=== PATIENT | female | born 1990 | race Caucasian/White ===

== ENCOUNTER 2019-09-02 11:28 | Emergency (ER) | payer SELFPAY ==
[2019-09-02 11:41] VITALS: BP 150/96; PULSE 88; RESP 17; TEMP 37; O2SAT 97; BMI 42.5
[2019-09-02 11:57] LABS: Basophils % 0.2 %; Eosinophils # 0.2 10^3/uL (0.0-0.8); Eosinophils % 2.6 %; Hematocrit 35.2 % (37.0-47.0); Hemoglobin 10.9 g/dL (11.5-15.3); Lymphocytes # 2.2 10^3/uL (0.8-4.8); Lymphocytes % 25.7 %; Mean Corpuscular Volume 87.3 fL (81-99); Mean Platelet Volume 9.7 fL (7.4-10.4); Monocytes # 0.5 10^3/uL (0.2-0.9); Neutrophils # 5.5 10^3/uL (1.8-7.7); Neutrophils % 65.3 %; Nucleated Red Blood Cells % 0 %; Platelet Count 409 10^3/cmm (130-400); Red Blood Count 4.03 10^6/uL (4.1-5.3); White Blood Count 8.4 10^3/uL (4.0-10.0)
--- NOTE | 2019-09-02 12:08 | US_ITS ---
WS: [id number] TRANSABDOMINAL PELVIC ULTRASOUND HISTORY: heavy bleeding/clots COMPARISON: None available. Uterus: Normal size anteverted uterus. Endometrium: 0.8 cm. Mild endometrial thickening extends towards the endocervical canal. There are re tained products of a spontaneous miscarriage. Neither ovary is well visualized. No pelvic masses are identified. No free fluid. US/US pelvic with transvaginal IMPRESSION: Mildly thickened endometrium consistent with incomplete spontaneous .
--- NOTE | 2019-09-02 12:12 | ED_ITS ---
HPI - Female Genitourinary General: Chief complaint: Vaginal Bleeding Stated complaint: BLEEDING AND CRAMPING, POSS PREG Time Seen by Provider: 09/02/19 11:41 Source: patient Mode of arrival: ambulatory Limitations: no limitations History of Present Illness: HPI Narrative: Patient is a 28-year-old female who presents to ED today with complaints of heavy and prolonged vaginal bleeding (18 days). Patient states she has a history of PCOS and does not have regular menstrual cycles. She initially thought that she may be and miscarrying as her and her significant other are trying to conceive. Patient never took a home test nor was a ever confirmed. Patient states she has not really had any abdominal or pelvic pain/cramping. She states bleeding initially was heavy but progressively lightened up and then became heavy again. Patient denies any vaginal discharge, vaginal odor, new sexual partners, concern for STDs. She does not take any medications for the PCOS. MD elicited complaint: vaginal bleeding Pertinent past history: other (PCOS) Onset (ago): day(s) Vaginal discharge: none Vaginal bleeding: heavy and clots Exacerbating factors: none Relieving factors: none Associated symptoms: Deny abdominal pain, headache(s), nausea, syncope or vaginal discharge Date of Last Menstrual Period: 09/02/19 Review of Systems Const: Denies: fever or chills Card: Denies: chest pain, palpitations, irregular heart rhythm, edema, swelling of feet/ankles, lightheadedness, syncope, pre-syncope, shortness of breath on exertion or shortness of breath when lying down Resp: Denies: shortness of breath or chest congestion GI: Denies: abdominal pain, nausea, vomiting or diarrhea : Reports: vaginal bleeding; Denies: flank pain, difficulty urinating, painful urination, urinary frequency, urinary urgency, urinary hesitancy, genital lesion, genital itching, vaginal discharge, painful menstruation or pelvic pain Musc: Denies: neck pain or back pain Skin/Breast: Denies: rash Neuro: Denies: headache, numbness in extremities, weakness in extremities or changes in sensation PFS ED PFSH: Social History (Updated 08/28/19 @ 10:35 by Ruth Ann Martinez LPN) Smoking and tobacco status: never smoked Female Reproductive History: Date of last menstrual period: 09/02/19 Physical Exam Const: COMMON NORMALS: no apparent distress, oriented x3, no limitations and alert NUTRITIONAL APPEARANCE: obese morbidly obese HENMT: COMMON NORMALS: normocephalic and head/scalp atraumatic HEAD & SCALP: normocephalic and atraumatic Resp: COMMON NORMALS: normal respiratory effort and clear to auscultation bilaterally AUSCULTATION: clear to auscultation bilaterally Cardio: COMMON NORMALS: regular rate and regular rhythm RATE: regular rate RHYTHM: regular rhythm GI: COMMON NORMALS: normal to inspection, nondistended, normoactive bowel sounds, soft to palpation, non-tender, no hepatosplenomegaly and no masses PA LPATION: Yes soft and Yes no hepatosplenomegaly : COMMON NORMALS: Yes no CVA tenderness BLADDER/KIDNEY EXAM: Yes no CVA tenderness Back/Pelvis: COMMON NORMALS: no CVA tenderness Neuro: COMMON NORMALS: oriented x3 SENSORIUM/ORIENTATION: Yes alert Skin: COMMON NORMALS: no rashes or lesions noted GENERAL SKIN EXAM: no rashes or lesions noted Course Vital Signs: Vital signs: Vital Signs Temperature 98.6 F 09/02/19 11:41 Pulse Rate 88 09/02/19 11:41 Respiratory Rate 17 09/02/19 11:41 Blood Pressure 150/96 09/02/19 11:41 Pulse Oximetry 97 09/02/19 11:41 MDM - Female MDM Narrative: Medical decision making narrative: Patient's hCG is consistent with a non female. Spoke to Dr. Larsen regarding the ultrasound findings. She was under the impression from the ultra sound technician that patient was hence her report. She stated now that has been ruled out most likely ultrasound findings are consistent with heavy menstrual bleeding and that these are not retained products of conception. Endometrium was slightly thickened. Spoke to patient regarding her bleeding and her need for follow-up. Ultimately they are trying to conceive thus hormonal therapy probably would not be indicated at this time. We will go ahead and put her on 5 days of TXA to try to stop her bleeding. Case management will try to set her up with the women's health clinic for further evaluation. Lab Data: Labs: Lab Results 09/02/19 09/02/19 09/02/19 Range/Units 11:50 11:50 11:50 WBC 8.4 (4.0-10.0) 10^3/ uL RBC 4.03 L (4.1-5.3) 10^6/u L Hgb 10.9 L (11.5-15.3) g/dL Hct 35.2 L (37.0-47.0) % MCV 87.3 (81-99) fL MCH 27.0 L (28.0-34.0) pg MCHC 31.0 (30.0-36.0) g/dL RDW 15.0 (12.1-15.1) % Plt Count 409 H (130-400) 10^3/c mm MPV 9.7 (7.4-10.4) fL Neut % (Auto) 65.3 % Lymph % (Auto) 25.7 % Anderson % (Auto) 6.0 % Eos % (Auto) 2.6 % Baso % (Auto) 0.2 % Neut # (Auto) 5.5 (1.8-7.7) 10^3/u L Lymph # (Auto) 2.2 (0.8-4.8) 10^3/u L Anderson # (Auto) 0.5 (0.2-0.9) 10^3/u L Eos # (Auto) 0.2 (0.0-0.8) 10^3/u L Baso # (Auto) 0.0 (0.0-0.1) 10^3/u L Nucleated RBC % (a uto) 0 % Nucleated RBCs # 0.0 /100WBC Sodium 139 (136-145) mmol/L Potassium 4.2 (3.5-5.1) mmol/L Chloride 101 (98-107) mmol/L Carbon Dioxide 25 (22-29) mmol/L Anion Gap 17.2 (5-19) BUN 9 (6-20) mg/dL Creatinine 0.7 (0.5-0.9) mg/dL GFR Calculation 101.1 (90-130) mL/min Glucose 93 (65-115) mg/dL Calculated Osmolal ity 284 L (285-295) mOsm/k g Calcium 9.5 (8.5-10.5) mg/dL Total Bilirubin 0.2 (0.15-1.2) mg/dL AST 14 (0-32) U/L ALT 14 (0-33) U/L Alkaline Phosphata se 91 (35-105) IU/L Total Protein 7.2 (6.6-8.7) g/dL Albumin 4.6 (3.5-5.2) g/dL Globulin 2.6 (1.3-4.6) g/dL Ser , Kranthi i-Qnt 0.50 mIU/mL Blood Type AB Positive Rho(D) Type Positive Imaging Data: US pelvis : Radiologist's impression: [facility] [address] [address] Ultrasound Report Signed Patient: Anamaria Lieberman Unit #: [id number] : 1990 Age/Sex: 28 / F ADM Date: 09/02/19 Loc: ER Room/Bed: Attending Dr: Ordering Provider/Ordering MD: Philly Sen Date of Service: 09/02/19 Procedure(s): US pelvic with transvaginal Accession Number(s): [id number] Report Number: [id number] WS: [id number] TRANSABDOMINAL PELVIC ULTRASOUND HISTORY: heavy bleeding/clots COMPARISON: None available. Uterus: Normal size anteverted uterus. Endometrium: 0.8 cm. Mild endometrial thickening extends towards the endocervical canal. There are retained products of a spontaneous miscarriage. Neither ovary is well visualized. No pelvic masses are identified. No free fluid. US/US pelvic with transvaginal IMPRESSION: Mildly thickened endometrium consistent with incomplete spontaneous . Dictated By: Eulalia Larsen DO Signed By: Eulalia Larsen DO Signed Date/Time: 09/02/19 131 DD/ 1311 Discharge Plan Discharge Patient Disposition: Home, Self-Care Clinical Impression: Dysfunctional uterine bleeding Condition: Stable Prescriptions: New Lysteda 650 mg tablet 1,300 mg PO TID 5 Days Qty: 30 RF: 0 No Action All Day Nsaid 2 tab PO PRN RF: 0 Discharge Orders: Discharge Order (Routine); Ordered 09/02/19 Ordered By: Philly Sen Referrals: [facility] [Other] Discharge Diet: Usual diet Discharge Activity: Increase activity as tolerated Patient Instructions: Menstruation (ED), Dysmenorrhea (ED) Activity Restrictions/Additional Instructions: As discussed I will have case management set you up with the women's health clinic for further evaluation. Return to the emergency department for worsening bleeding, lightheadedness, dizziness, passing out episodes, severe pain, or any other concerns you may have. Discharge Date/Time: 09/02/19 14:11 Coding Level of Care Code ED Ignition Expert for Chapo Fwd Exam Detailed
[2019-09-02 12:23] LABS: Alanine Aminotransferase 14 U/L (0-33); Albumin Level 4.6 g/dL (3.5-5.2); Alkaline Phosphatase 91 IU/L (35-105); Anion Gap 17.2 (5-19); Aspartate Amino Transferase 14 U/L (0-32); Blood Urea Nitrogen 9 mg/dL (6-20); Calcium 9.5 mg/dL (8.5-10.5); Carbon Dioxide 25 mmol/L (22-29); Chloride 101 mmol/L (98-107); Globulin 2.6 g/dL (1.3-4.6); Glomerular Filtration Rate 101.1 mL/min (90-130); Glucose 93 mg/dL (65-115); Osmolality Calculated 284 mOsm/kg (285-295); Potassium 4.2 mmol/L (3.5-5.1); Sodium 139 mmol/L (136-145); Total Bilirubin 0.2 mg/dL (0.15-1.2); Total Protein 7.2 g/dL (6.6-8.7)
--- NOTE | 2019-09-02 12:42 | PC.NURSE ---
Ultra sound to room
[2019-09-02 14:11] VITALS: BP 121/80; PULSE 74; RESP 17; O2SAT 99
--- NOTE | 2019-09-03 12:25 | DCPLANNER ---
community association manager had message to schedule a follow up appointment for patient with [facility]. community association manager called [facility], asked for Maggie, she was not, left referral information with Wilda. community association manager gave Wilda patients information, was told that patients information would be left for Maggie.
--- NOTE | 2019-09-10 11:34 | DCPLANNER ---
Patient has a follow up appointment scheduled for Monday, November 04, 2019 at 1:[address] Wilson. Clinic will call patient with appointment information.
--- NOTE | 2019-11-19 08:38 | DCPLANNER ---
process control manager called the [facility], spoke with Maggie to confirm that an appointment had been scheduled for patient. process control manager was told that the clinic tried to reach patient several different times, unable to speak with patient and unable to leave a message. An appointment had not been scheduled. Patients phone number is no longer in service.
== END 2019-09-02 14:11 | disposition home or self-care (01) ==
PROVIDERS: Emergency Medicine; Emergency Provider Physician Assistant; PCP Urology
DX: N93.8 Other specified abnormal uterine and vaginal bleeding (principal)
CPT/HCPCS: 12345; 36415; 76830; 76856; 80053; 84702; 85025; 86900; 99281; 99283; E0352